=== PATIENT | male | born 1960 | race Caucasian/White ===

== ENCOUNTER 2020-11-10 18:44 | Emergency (ER) | payer OTHER ==
[~2020-11-10] VITALS: Ht 170.2 cm; Wt 72.0 kg
[2020-11-10 19:15] LABS: BASO % 0 % (0-3); EOS # 0.1 x10^3/uL (0.0-0.7); EOS % 1 % (0-3); HEMATOCRIT 43.6 % (39.0-53.0); HEMOGLOBIN 14.8 g/dL (13.0-17.5); LYMPH # 2.5 x10^3/uL (1.0-4.8); LYMPH % 28 % (24-48); MEAN CORPUSCULAR HEMOGLOBIN 33 pg (25-35); MEAN CORPUSCULAR HGB CONC 34 g/dL (31-37); MEAN CORPUSCULAR VOLUME 98 fL (79-100); MONO # 0.8 x10^3/uL (0.0-1.1); MONO % 9 % (0-9); NEUT # 5.6 x10^3uL (1.8-7.7); NEUT % 62 % (31-73); PLATELET COUNT 356 x10^3/uL (140-400); RED BLOOD COUNT 4.45 x10^6/uL (4.30-5.70); RED CELL DISTRIBUTION WIDTH 15.6 % (11.5-14.5)
[2020-11-10 19:29] LABS: ALBUMIN 4.5 g/dL (3.4-5.0); CALCIUM 9.2 mg/dL (8.5-10.1); CREATININE 2.5 mg/dL (0.7-1.3); GFR 26.3; TOTAL BILIRUBIN 0.4 mg/dL (0.2-1.0); TOTAL PROTEIN 8.9 g/dL (6.4-8.2)
[2020-11-10 19:33] LABS: POTASSIUM 2.7 mmol/L (3.5-5.1)
[2020-11-10] MEDS ORDERED: POTASSIUM CHLORIDE 20 MEQ TABLET.ER. PO ONE (19:45)
[2020-11-10] MEDS ORDERED: IV NORMAL SALINE 1,000ML 1,000 ML IV ONE (19:45)
--- NOTE | 2020-11-10 19:57 | RAD ---
Chest PA and lateral: Reason for examination: Dizziness and shortness of breath. The heart size is normal. Mediastinum is unremarkable. Lung benjamin are clear. No acute bony abnormali ties are seen. Impression: No acute cardiopulmonary disease. CT head without contrast: Helical images were obtained through the brain with no contrast administered. Ventricular systems are symmetric and not abnormally dilated. No midline shift is seen. There is no e vidence of intracranial hemorrhage, infarct, mass or edema. No abnormalities are seen at the orbits. The paranasal sinuses and mastoid air cells are clear. No acute abnormality seen in the skull. IMPRESSION: No acute intracranial abnormality evident. CT cervical spine without contrast: Helical images were obtained through the cervical spine from skull base through the thoracic apices w ith no contrast administered. Reconstruction was performed in sagittal and coronal planes. C1 ring is intact. The odontoid process is intact and normally centered between the lateral masses of C1. The cervical vertebral bodies are normally aligned anteriorly and posteriorly. No acute fracture or subluxation is seen. The posterior elements also appear to be intact. Note is made of some nuchal ligament calcification. The intervertebral discs show severe loss of disc height with hypertrophic c hanges at the C5-6, C6-7 and C7-T1 levels. This does not appear to cause significant spinal stenosis. Muscular bundles in the neck are symmetric. IMPRESSION: Degenerative spondylosis with disc disease at the C5-6, C6-7 and C7-T1 levels. No acute abnormality evident in the cervical spine. Exposure: One or more of the following individualized dose reduction techniques were utilized for thi s examination: 1. Automated exposure control 2. Adjustment of the mA and/or kV according to patient size 3. Use of iterative reconstruction technique. Electronically signed by: Isabela Narvaez MD (11/10/2020 7:54 PM) KAJAL
[2020-11-10 20:01] VITALS: BP 107/80
[2020-11-10] MEDS ORDERED: MECLIZINE 12.5 MG TABLET. PO ONE (20:15)
[2020-11-10] MEDS ORDERED: KETOROLAC 15 MG/ML VIAL. IVP ONE (20:15)
[2020-11-10] MEDS ORDERED: FOLIC ACID 1 MG TABLET PO ONE (21:00)
--- NOTE | 2020-11-10 21:24 | PHYS DOC ---
Past History Past Surgical History: No Surgical History (CHERRY GOODE APRN) Alcohol Use: Occasionally (CHERRY GOODE APRN) General Adult EDM: Chief Complaint: MULTIPLE COMPLAINTS HPI: HPI: Patient is a 60-year-old male who presents with dizziness, chest pain, shortness of breath. Patient states "I had 4 episodes today of loss of consciousness". "When I stand up I get real dizzy and sometimes I fall". Patient states the dizziness has been going on for a few months. [facility] but has not had any resolution. Patient has history of COPD and hypertension. (CHERRY GOODE APRN) Review of Systems: Review of Systems: Constitutional: Denies fever or chills Eyes: Denies change in visual acuity HENT: Denies nasal congestion or sore throat Respiratory: Reports shortness of breath. Denies cough. Cardiovascular: Reports chest pain GI: Denies abdominal pain, nausea, vomiting, bloody stools or diarrhea : Denies dysuria Musculoskeletal: Denies back pain or joint pain Integument: Denies rash Neurologic: Reports headache and dizziness Endocrine: Denies polyuria or polydipsia Lymphatic: Denies swollen glands Psychiatric: Denies depression or anxiety (CHERRY GOODE APRN) Current Medications: Current Meds: Current Medications Medications (Trade) Dose Ordered Sig/Shabbir Start Time Stop Time Status Last Admin Dose Admin Cyanocobalamin (Vitamin B-12) 100 mcg 1X ONCE 11/10/20 21:30 11/10/20 21:31 Folic Acid (Folic Acid) 1 mg 1X ONCE 11/10/20 21:00 11/10/20 21:14 DC Ketorolac Tromethamine (Toradol 15mg Vial) 15 mg 1X ONCE 11/10/20 20:15 11/10/20 20:23 DC 11/10/20 20:31 15 MG Meclizine HCl (Antivert) 25 mg 1X ONCE 11/10/20 20:15 11/10/20 20:23 DC 11/10/20 20:30 25 MG Potassium Chloride (Klor-Con) 40 meq 1X ONCE 11/10/20 19:45 11/10/20 19:57 DC 11/10/20 19:58 40 MEQ Sodium Chloride 1,000 ml @ 1,000 mls/hr 1X ONCE 11/10/20 19:45 11/10/20 20:44 DC 11/10/20 19:59 1,000 MLS/HR (CHERRY GOODE SPANISH TRANSLATOR) Allergies: Allergies: Allergies Coded Allergies Type Severity Reaction Last Updated Verified No Known Drug Allergies 11/10/20 No (CHERRY GOODE APRN) Physical Exam: PE: Constitutional: Well developed, well nourished, no acute distress, non-toxic appearance. [] HENT: Normocephalic, atraumatic, bilateral external ears normal, oropharynx moist, no oral exudates, nose normal. [] Eyes: PERRLA, EOMI, conjunctiva normal, no discharge. [] Neck: Normal range of motion, no tenderness, supple, no stridor. [] Cardiovascular:Heart rate regular rhythm, no murmur [] Lungs & Thorax: Bilateral breath sounds clear to auscultation [] Abdomen: Bowel sounds normal, soft, no tenderness, no masses, no pulsatile masses. [] Skin: Warm, dry, no erythema, no rash. [] Back: No tenderness, no CVA tenderness. [] Extremities: No tenderness, no cyanosis, no clubbing, ROM intact, no edema. [] Neurologic: Alert and oriented X 3, normal motor function, normal sensory f unction, no focal deficits noted. [] Psychologic: Affect normal, judgement normal, mood normal. [] (CHERRY GOODE SPANISH TRANSLATOR) Current Patient Data: Labs: Laboratory Tests Test 11/10/20 18:50 11/10/20 19:09 11/10/20 21:01 White Blood Count 9.0 x10^3/uL (4.0-11.0) Red Blood Count 4.45 x10^6/uL (4.30-5.70) Hemoglobin 14.8 g/dL (13.0-17.5) Hematocrit 43.6 % (39.0-53.0) Mean Corpuscular Volume 98 fL (79-100) Mean Corpuscular Hemoglobin 33 pg (25-35) Mean Corpuscular Hemoglobin Concent 34 g/dL (31-37) Red Cell Distribution Width 15.6 % (11.5-14.5) H Platelet Count 356 x10^3/uL (140-400) Neutrophils (%) (Auto) 62 % (31-73) Lymphocytes (%) (Auto) 28 % (24-48) Monocytes (%) (Auto) 9 % (0-9) Eosinophils (%) (Auto) 1 % (0-3) Basophils (%) (Auto) 0 % (0-3) Neutrophils # (Auto) 5.6 x10^3uL (1.8-7.7) Lymphocytes # (Auto) 2.5 x10^3/uL (1.0-4.8) Monocytes # (Auto) 0.8 x10^3/uL (0.0-1.1) Eosinophils # (Auto) 0.1 x10^3/uL (0.0-0.7) Basophils # (Auto) 0.0 x10^3/uL (0.0-0.2) Sodium Level 141 mmol/L (136-145) Potassium Level 2.7 mmol/L (3.5-5.1) *L Chloride Level 101 mmol/L (98-107) Carbon Dioxide Level 21 mmol/L (21-32) Anion Gap 19 (6-14) H Blood Urea Nitrogen 22 mg/dL (8-26) Creatinine 2.5 mg/dL (0.7-1.3) H Estimated GFR (Cockcroft-Gault) 26.3 BUN/Creatinine Ratio 9 (6-20) Glucose Level 113 mg/dL (70-99) H Calcium Level 9.2 mg/dL (8.5-10.1) Total Bilirubin 0.4 mg/dL (0.2-1.0) Aspartate Amino Transferase (AST) 102 U/L (15-37) H Alanine Aminotransferase (ALT) 84 U/L (16-63) H Alkaline Phosphatase 164 U/L (46-116) H Troponin I Quantitative < 0.017 ng/mL (0-0.055) Total Protein 8.9 g/dL (6.4-8.2) H Albumin 4.5 g/dL (3.4-5.0) Albumin/Globulin Ratio 1.0 (1.0-1.7) D-Dimer (Jyoti) 12.20 mg/L (0.00-0.50) H Magnesium Level 2.7 mg/dL (1.8-2.4) H Vital Signs: Vital Signs Date Time Temp Pulse Resp B/P (MAP) Pulse Ox O2 Delivery O2 Flow Rate FiO2 11/10/20 18:58 98.2 101 16 101/68 99 Room Air (CHERRY GOODE APRN) EKG: EKG: [] Sinus rhythm. Heart rate 91 bpm (CHERRY GOODE APRN) Radiology/Procedures: Radiology/Procedures: []Chest PA and lateral: Reason for examination: Dizziness and shortness of breath. The heart size is normal. Mediastinum is unremarkable. Lung benjamin are clear. No acute bony abnormalities are seen. Impression: No acute cardiopulmonary disease. CT head without contrast: Helical images were obtained through the brain with no contrast administered. Ventricular systems are symmetric and not abnormally dilated. No midline shift is seen. There is no evidence of intracranial hemorrhage, infarct, mass or edema. No abnormalities are seen at the orbits. The paranasal sinuses and m astoid air cells are clear. No acute abnormality seen in the skull. IMPRESSION: No acute intracranial abnormality evident. CT cervical spine without contrast: Helical images were obtained through the cervical spine from skull base through the thoracic apices with no contrast administered. Reconstruction was performed in sagittal and coronal planes. C1 ring is intact. The odontoid process is intact and normally centered between the lateral masses of C1. The cervical vertebral bodies are normally aligned anteriorly and posteriorly. No acute fracture or subluxation is seen. The posterior elements also appear to be intact. Note is made of some nuchal ligament calcification. The intervertebral discs show severe loss of disc height with hypertrophic changes at the C5-6, C6-7 and C7-T1 levels. This does not appear to cause significant spinal stenosis. Muscular bundles in the neck are symmetric. IMPRESSION: Degenerative spondylosis with disc disease at the C5-6, C6-7 and C7-T1 levels. No acute abnormality evident in the cervical spine. Exposure: One or more of the following individualized dose reduction techniques were utilized for this examination: 1. Automated exposure control 2. Adjustment of the mA and/or kV according to patient size 3. Use of iterative reconstruction technique. Electronically signed by: Isabela Narvaez MD (11/10/2020 7:54 PM) KAIDEN (CHERRY GOODE APRN) Heart Score: C/O Chest Pain: Yes HEART Score for Chest Pain: HEART Score for Chest Pain Response (Comments) Value History Moderately Suspicious 1 ECG Normal 0 Age >45 - < 65 1 Risk Factors 1 or 2 Risk Factors 1 Troponin < Normal Limit 0 Total 3 Risk Factors: Risk Factors: DM, Current or recent (<one month) smoker, HTN, HLP, family history of CAD, obesity. Risk Scores: Score 0 - 3: 2.5% MACE over next 6 weeks - Discharge Home Score 4 - 6: 20.3% MACE over next 6 weeks - Admit for Clinical Observation Score 7 - 10: 72.7% MACE over next 6 weeks - Early Invasive Strategies (CHERRY GOODE APRN) Course & Med Decision Making: Course & Med Decision Making Pertinent Labs and Imaging studies reviewed. (See chart for details) [] 60-year-old male presents with dizziness, chest pain and shortness of breath. Patient states that he drank a pint of liquor today. Patient reports he has dizziness when he goes from sitting to standing. Patient reports he had 4 episodes of brief loss of consciousness today. Patient is also reporting shortness of breath. EKG shows sinus rhythm. Heart rate 91 bpm. Heart score o f 3. Potassium of 2.7. Patient given 40 mEq of potassium. Mag 2.7. Creatinine is 2.5. D-dimer was 12.20. CTA chest ordered. Patient given liter bolus prior to CTA. Transfer patient care to Dr. Hogue at 2157 (CHERRY GOODE APRN) Course & Med Decision Making Patient care handed off to me at checkout pending CT of the chest. Patient awake alert and oriented in no acute distress with nonconcerning vital signs. Patient denies any symptoms at this time and states he is ready to be discharged home. CT of the chest showed no evidence of PE but did show some emphysema. Potassium a little low and was replaced. Magnesium a little high but not too concerning. D-dimer elevated with no signs of DVT or PE. Patient able to take p.o. Discussed all findings with patient and recommended a follow-up first thing Friday morning with his primary care physician to discuss ED visit and set up a follow-up as soon as possible. Gave strict return precautions to the ED. Patient grateful, verbalized understanding and agreed with plan of discharge. (ENRICO HOGUE MD) Dragon Disclaimer: Dragon Disclaimer: This electronic medical record was generated, in whole or in part, using a voice recognition dictation system. (CHERRY GOODE APRN) Departure Departure: Impression: Primary Impression: Dizziness Additional Impressions: Hypokalemia Hypomagnesemia Elevated d-dimer Disposition: HOME / SELF CARE / HOMELESS Condition: GOOD Referrals: BERNARD STUART (PCP) Patient Instructions: Dizziness, Hypokalemia Additional Instructions: Thank you for coming into the emergency department tonight and allowing us to t [place] care of you. Please read all the attached information very carefully to go back over some of the things we discussed. 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 Please come back to the ED immediately with new or concerning symptoms as discussed. CHERRY GOODE APRN Nov 10, 2020 21:24 ENRICO HOGUE MD Nov 10, 2020 22:49
[2020-11-10] MEDS ORDERED: CYANOCOBALAMIN (VITAMIN B-12) 100 MCG TABLET PO ONE (21:30)
[2020-11-10] MEDS ORDERED: IOHEXOL 350 MG/ML 100 ML VIAL. IV ONE (21:45)
--- NOTE | 2020-11-10 22:31 | RAD ---
CTA chest with contrast dated 11/10/2020. No comparison available. CLINICAL INDICATION: Chest pain. TECHNIQUE: Contiguous axial imaging the chest performed following the intravenous administration of 75 cc Isovue -370. Study was performed as dedicated PE protocol with thin cut coronal MIPS 3-D reconstruction. One or more of the following individualized dose reduction techniques were utilized for this examinat ion: 1. Automated exposure control 2. Adjustment of the mA and/or kV according to patient size 3. Use of iterative reconstruction technique. FINDINGS: Contrast bolus is adequate. No evidence of central, lobar or segmental pulmonary embolus. Subsegmenta l branches are not well evaluated based on technique. Heart size within normal limits. No pericardial effusion. No mediastinal, hilar or axillary lymphaden opathy. Thyroid gland is unremarkable. Central airways are patent. Some patchy and linear bibasilar opacity, likely atelectasis. Lungs are o therwise clear. No consolidation or pleural effusion. Mild emphysema. Limited images of the upper abdomen are unremarkable. No significant bony abnormality. Multilevel spo ndylosis. IMPRESSION: 1. No evidence of central, lobar or segmental pulmonary embolus. 2. Bibasilar scar or atelectasis. Otherwise clear lungs. Electronically signed by: Aldo Thompson MD (11/10/2020 10:28 PM) [facility]
--- NOTE | 2020-11-10 23:37 | EKG ---
[address] [address] Test Date: 2020-11-10 Test Time: 19:13:00 Pat Name: ANA LAURA BOSTON Department: Room: Gender: Ice [employer] Sco[employer]: : 1960 Requested By: CHERRY GOODE Order Number: [id number] Reading MD: Measurements Intervals [place] Rate: 91 P: 46 [place]: 136 QRS: 15 QRSD: 80 T: 51 QT: 358 QTc: 442 Interpretive Statements SINUS RHYTHM NORMAL ECG RI6.02 No previous ECG available for comparison
== END 2020-11-10 23:00 | disposition home or self-care (01) ==
LOC: ER 18:44
DX: R42 Dizziness and giddiness (principal); E87.6 Hypokalemia; E83.42 Hypomagnesemia; R79.1 Abnormal coagulation profile
CPT/HCPCS: 36415; 70450; 71046; 71275; 72125; 80053; 83735; 84484; 85025; 85379; 93005; 96361; 96374; 99285; J1885; J7030; Q9967